=== PATIENT | male | born 1985 | race African-American/Black ===

== ENCOUNTER 2024-11-16 10:13 | Emergency (ER) | payer OTHER, SELFPAY ==
--- OUTSIDE RECORDS SUMMARY | 2023-09-24 09:00 | XMS_ITS ---
[facility] [address] [facility] [address] Care Team Providers Care Bundle Packer Name Role Phone Chacorta Pacheco Primary Care Provider REASON FOR VISIT 1 month f/u Encounters Encounter Location Date Provider Diagnosis [place] [address] [facility] [address] 09/24/2023 Chacorta Pacheco Plan Of Treatment No Information Progress Notes * EMANUEL ROJASDOB:1985 (39 yo M)Acc No.[id number]:09/24/2023 Progress Notes Patient: EMANUEL OGDEN Provider: Tanesha Pacheco :1985 A ge:38 Y S ex:Male Date:09/24/2023 Address:[address] [place], [place] [id number] Subjective: * Chief Complaints: * 1 . 1 month f/u. * Medical History: Objective: * Vitals: Assessment: Plan: * Treatment: * Images: * Electronic signature of Makayla Pacheco DO on 11/16/2024 at 10:26 AM EDT Sign off status: Pending * Provider: Tanesha Pacheco Date: 0 09/24/2023 Generated for Sallie bravo/Arielle/Mark on: 0 11/16/2024 10:26 AM EDT
[2024-11-16 10:18] VITALS: BP 137/91; PULSE 97; TEMP 37.1; O2SAT 100; BMI 27.5
--- OUTSIDE RECORDS SUMMARY | 2024-11-16 10:26 | XMS_ITS | Patient Health Record ---
Author Organization [facility] Address [address] [place] [address] Care Team Providers Care Emulsion Coater Name Role Phone Chacorta Pacheco Primary Care Provider [phone] Allergies Allergen (clinical drug ingredient) Drug/Non Drug Allergy documented on EMR Reaction Allergy Type Onset Date Status Seafood seafood (uncoded) shortness of breath Allergy Active Reason For Referral No Information Medications Medication SIG (Take, Route, Frequency, Duration) Notes Start Date End Date Status Atomoxetine HCl 40 MG 1 capsule in the m orning for one week then increase to 2 capsules each morning Orally Once a day; Duration: 30 days 08/27/2023 Active Albuterol Sulfate HFA 108 (90 Base) MCG/ACT 1 puff as needed Inhalation every 4 hrs; Duration: 30 days Active Fluticasone-Salmeterol 45-21 MCG/ACT 2 puffs Inhalation Twice a day; Duration: 30 days 08/27/2023 Active Social History Tobacco Use: Social History Observation Description Date Details (start date - stop date) Current Smoker NA - NA Sexual Hx: Question Answer Notes Had sex in the last 12 months (vaginal, oral, or anal)? Yes with Women only Use protection? Yes How often? Most of the time Prevention Strategies discussed: Condoms Have you ever had an STD? No AUDIT-C (Standard) Question Answer Notes Did you have a drink containing alcohol in the p ast year? No Points 0 Interpretation Negative Tobacco Control (Standard) Question Answer Notes Tobacco use: Current smoker How often do you smoke cigarettes? Every day How many cigarettes a day do you smoke? 6-10 Are you interested in quitting? Thinking about q uitting Problems Problem Type SNOMED Code ICD Code Onset Dates Problem Status W/U Status Risk Notes Problem Tobacco user (702101967) Nicotine dependence, unspecified, uncomplicated (F17.200) Active confirmed Problem Uncomplicated moderate persistent asthma (614560666) Moderate persistent asthma without complication (J45.40) Active confirmed Problem Attention defici t hyperactivity disorder (ADHD), predominantly inattentive type (F90.0) Active confirmed Plan Of Treatment Pending Test Test Name Order Date Comprehensive Metabolic Panel 08/27/2023 Lipid Panel 08/27/2023 Complete Blood Count Auto Diff 4 HIV 1/O/2 Antigen/Antibody 08/27/2023 Insurance Providers Payer Name Payer Address Payer Phone Subscriber Number Group Number Insured Name Patient Relationship to Insured Coverage Start Date Coverage End Date [employer] [place] [employer] [address] [place] [address] [id number] EMANUEL ROJAS Self - patient is the insured 4 Medical (General) History Medical History History ICD Code asthma seasonal allergies allergies
--- NOTE | 2024-11-16 10:35 | ED.GENADUL1 ---
HPI HPI - General Adult General Chief complaint: Dental/Oral Stated complaint: DENTAL PAIN Time Seen by Provider: 11/16/24 10:31 Source: patient Mode of arrival: walk-in Limitations: no limitations History of Present Illness HPI narrative: 39-year-old male presents to the emergency department for a dental issue. He feels some discomfort in his right lower jaw anteriorly and felt like something was moving around in there. No bleeding or pus present. No difficulty breathing or swallowing. He does not have a dentist. He states that it has been like this for a while and I cannot get him to be more specific. Related Data Previous Rx's ?Medication ?Instructions ?Recorded penicillin V potassium 250 mg 250 mg PO QID 10 days #40 tabs 11/16/24 tablet Allergies Allergy/AdvReac Type Severity Reaction Status Date / Time No Known Drug Allergies Allergy Verified 11/16/24 10:17 Opioid HPI Opioid Management Most Recent Opioid Data: Last Pain Scale 5 Today, 10:18 Review of Systems ROS Narrative A ten point review of systems is negative except as noted above. PFSH PFSH Social History Little interest or pleasure in doing things: not at all Feeling down, depressed, or hopeless: not at all Exam Narrative Exam Narrative: Nurses note and vital signs reviewed and patient is not hypoxic. General: The patient appears in no apparent distress. Patient is resting comfortably on cart. Skin: Warm, dry, no pallor noted. There is no rash noted. Head: Normocephalic, atraumatic Eye: Normal conjunctiva, no drainage Ears, Nose, Mouth, and Throat: oral mucosa is moist. Nares patent. No facial swelling or erythema. Dental condition is poor with erosion down to the gumline of the area in question on the right lower jaw anteriorly. No bleeding or pus present. No gingival swelling and no swelling to the floor of his mouth. He is handling his oral secretions well. Cardiovascular: Regular Rate and Rhythm Respiratory: Patient is in no distress, no accessory muscle use, lungs are clear to auscultation, no wheezing, rales or rhonchi Back: non-tender GI: Soft and nontender Musculoskeletal: All joints have full range of motion Neurological: Awake and alert Psychiatric: Cooperative Constitutional Vital Signs, click to edit/add: Last Vital Signs Temp 98.7 F 11/16/24 10:18 Pulse 97 H 11/16/24 10:18 Resp 20 11/16/24 10:18 BP 137/91 11/16/24 10:18 Pulse Ox 100 11/16/24 10:18 O2 Del Method Room Air 11/16/24 10:18 Course Vital Signs Vital signs: Vital Signs Temperature 98.7 F 11/16/24 10:18 Pulse Rate 97 H 11/16/24 10:18 Respiratory Rate 20 11/16/24 10:18 Blood Pressure 137/91 11/16/24 10:18 Pulse Oximetry 100 11/16/24 10:18 Oxygen Delivery Method Room Air 11/16/24 10:18 Temperature 98.7 F 11/16/24 10:18 Pulse Rate 97 H 11/16/24 10:18 Respiratory Rate 20 11/16/24 10:18 Blood Pressure 137/91 11/16/24 10:18 Pulse Oximetry 100 11/16/24 10:18 Oxygen Delivery Method Room Air 11/16/24 10:18 Medical Decision Making MDM Narrative Medical decision making narrative: He is prescribed penicillin and was given dental referral list. The importance of follow-up was discussed with him. Treatment diagnosis and follow-up were discussed thoroughly. Differential Diagnosis Differential Diagnosis: Dental caries, gingivitis, dental abscess Discharge Plan Discharge Chief Complaint: Dental/Oral Clinical Impression: Dental caries Patient Disposition: Home, Self-Care Time of Disposition Decision: 10:34 Condition: Good Mode of Transportation: Private Vehicle Prescriptions / Home Meds: New penicillin V potassium 250 mg tablet 250 mg PO QID 10 Days Qty: 40 0RF Print Language: Vietnamese Instructions: Toothache (ED) Referrals: Physician,Non-Staff, MD [Primary Care Provider] - 1 week
== END 2024-11-16 10:44 | disposition home or self-care (01) ==
PROVIDERS: Emergency Provider Emergency Medicine
DX: K02.9 Dental caries, unspecified (principal); R68.84 Jaw pain
CPT/HCPCS: 99283